=== PATIENT | male | born 1935 | race Caucasian/White ===

== ENCOUNTER 2017-01-18 17:40 | Emergency (ER) | payer OTHER ==
--- NOTE | ~2017-01-18 | EKG ---
[place], [place] ELECTROCARDIOGRAM REPORT [id number] UNIT #: [id number] ROOM: DOCTOR: DALIA WALTER MD,XIOMY BIRTHDATE: [birth year] DOS: 01/18/2017 ELECTROCARDIOGRAM TIME OF EK hours. The normal sinus rhythm was noted, heart rate of 77 beats per minute. Diffuse inversion of the T wave of this patient was noted in the anterolateral chest leads with mild ST segment depression. Inversion of the leads were also noted in I, aVL. A possibility of old inferior myocardial infarction would also be considered. EKG suggestive of either electrolyte imbalance or acute ischemia at this time. Further assessment for the patient for the acute myocardial ischemia was suggested with cardiac enzymes and followup electrocardiograms. XIOMY GÓMEZ MD CM:EKGRPT:ELECTROCARDIOGRAM REPORT [id number] XIOMY WALTER MD
[~2017-01-18 17:40] MED LIST: AMOXICILLIN500 MG PO; ASPIR LOW81 MG PO; CITALOPRAM20 MG PO; NEURONTIN300 MG PO; PRAVASTATIN SOD20 MG PO; PROPAFENONE HY225 MG PO; SYNTHROID,LEVO50 MCG PO; TRAMADOL HCL50 MG PO; VITAMIN B121000 MC2 PO; VITAMIN D5000 I2 PO
[2017-01-18 18:35] LABS: BASO % 0.2 % (0.0-1.0); EOS # 0.3 10*3/uL (0.0-0.4); EOS % 3.4 % (1.0-4.0); HEMATOCRIT 42.6 % (42.0-52.0); LYMPH % 10.4 % (27.0-41.0); MEAN CELL VOLUME 95.9 fl (80.0-94.0); MEAN CORPUSCULAR HGB 33.8 pg (27.0-31.0); MEAN CORPUSCULAR HGB CONC 35.2 g/dl (33.0-37.0); MEAN PLATELET VOLUME 11.4 fl (9.6-12.3); MONO # 0.7 10*3/uL (0.1-1.0); MONO % 7.9 % (3.0-9.0); NEUT # 7.3 10*3/uL (2.3-7.9); NEUT % 77.9 % (47.0-73.0); PLATELET COUNT AUTOMATED 130 10*3/uL (130-400); RED BLOOD COUNT 4.44 10*6/uL (4.50-5.90); RED CELL DISTRI WIDTH 13.1 % (0-14.5); WHITE BLOOD COUNT 9.3 10*3/uL (4.8-10.8)
[2017-01-18 18:52] LABS: ALBUMIN 3.7 gm/dl (3.1-4.5); CREATININE 1.57 mg/dL (0.70-1.30); POTASSIUM 3.5 mmol/L (3.5-5.1); TOTAL PROTEIN 7.8 gm/dL (6.4-8.2)
[2017-01-18 18:53] LABS: BILIRUBIN 1+ (NEGATIVE); BLOOD NEGATIVE (NEGATIVE); CLARITY SL CLOUDY (CLEAR); COLOR YELLOW (YELLOW); GLUCOSE NEGATIVE (NEGATIVE); KETONE TRACE (NEGATIVE); LEUKO ESTERASE NEGATIVE (NEGATIVE); NITRITE NEGATIVE (NEGATIVE); PH 5.5 (5.0-9.0); SPECIFIC GRAVITY >= 1.030 (1.005-1.030); UROBILINOGEN 0.2 E.U./dl (0.2-1.0)
[2017-01-18 19:08] LABS: MUCOUS 1+; RBC 0-2 rbc/hpf (0-2)
== END 2017-01-18 20:28 | disposition short-term general hospital (02) ==
LOC: ED 17:40
PROVIDERS: Nurse Practitioner Family
DX: I21.09 ST elevation (STEMI) myocardial infarction involving other coronary artery of anterior wall (principal); R09.81 Nasal congestion; H57.8 Other specified disorders of eye and adnexa; I10 Essential (primary) hypertension; E78.5 Hyperlipidemia, unspecified; Z79.82 Long term (current) use of aspirin; Z79.899 Other long term (current) drug therapy

== ENCOUNTER 2018-05-07 19:56 | Inpatient (IN) | payer OTHER ==
--- NOTE | ~2018-05-07 | EKG ---
[place], [place] ELECTROCARDIOGRAM REPORT NAME: FEDERICO TAYLOR UNIT #: [id number] ROOM: 405 DOCTOR: TEJA DRAFT REPORT BIRTHDATE: [birth year] [facility] Test Date: 2018-05-07 Test Time: 20:26:33 Pat Name: FEDERICO TAYLOR Department: Room: [facility] Gender: M Prepared Foods Supervisor: Kristy Pineda : 1935 Requested By: ANTONIO SALAS PA-C Order Number: [id number] Reading MD: Micky Nugent MD Measurements Intervals [place] Rate: 91 P: 51 IA: 137 QRS: 0 QRSD: 97 T: QT: 348 QTc: 429 Interpretive Statements Sinus rhythm Low voltage, extremity leads Abnormal R-wave progression, late transition Abnrm T, consider ischemia, anterolateral lds Electronically Signed On 05-15-2018 17:40:41 PST by Micky Nugent MD CM:EKGRPT:ELECTROCARDIOGRAM REPORT [id number] ANTONIO SALAS PA-C EPIPHANY DRAFT REPORT ANTONIO SALAS PA-C
--- NOTE | ~2018-05-07 | EKG ---
[place], [place] ELECTROCARDIOGRAM REPORT NAME: FEDERICO TAYLOR UNIT #: [id number] ROOM: 405 DOCTOR: TEJA DRAFT REPORT BIRTHDATE: [birth year] [facility] Test Date: 2018-05-08 Test Time: 01:45:41 Pat Name: FEDERICO TAYLOR Department: Room: 405 1 Gender: M Internet Marketing Coordinator: WANDY : 1935 Requested By: BOBBY VELASQUEZ Order Number: [id number] Reading MD: Micky Nugent MD Measurements Intervals [place] Rate: 148 P: [place]: QRS: 35 QRSD: 93 T: 223 QT: 279 QTc: 438 Interpretive Statements Atrial fibrillation with rapid V-rate Low voltage, extremity leads Repolarization abnormality, prob rate related Compared to 05/07/18 Atrial fibrillation has replaced normal sinus rhythm Lateral ST depression is more prominent Electronically Signed On 05-15-2018 17:42:56 PST by Micky Nugent MD CM:EKGRPT:ELECTROCARDIOGRAM REPORT [id number] BOBBY ORDOÑEZ DRAFT REPORT BOBBY VELASQUEZ DO
[2018-05-07 19:56] VITALS: BP 147/78
[~2018-05-07 19:56] MED LIST changes: -PROPAFENONE HY225 MG PO; +RYTHMOL SR225 MG PO; +VITAMIN D31000 UNI1 PO; -VITAMIN D5000 I2 PO
--- NOTE | 2018-05-07 20:17 | NUR ---
[facility] CALLED, PT SENT TO CT FOR SCAN
[2018-05-07 20:59] LABS: BASO % 0.1 % (0.0-1.0); EOS % 0.3 % (1.0-4.0); HEMATOCRIT 42.7 % (42.0-52.0); HEMOGLOBIN 14.8 g/dl (14.0-18.0); LYMPH # 0.5 10*3/uL (1.3-4.4); LYMPH % 7.4 % (27.0-41.0); MEAN CELL VOLUME 98.2 fl (80.0-94.0); MEAN CORPUSCULAR HGB CONC 34.7 g/dl (33.0-37.0); MEAN PLATELET VOLUME 11.5 fl (9.6-12.3); MONO # 0.4 10*3/uL (0.1-1.0); MONO % 5.6 % (3.0-9.0); NEUT # 5.9 10*3/uL (2.3-7.9); NEUT % 86.2 % (47.0-73.0); PLATELET COUNT AUTOMATED 94 10*3/uL (130-400); RED BLOOD COUNT 4.35 10*6/uL (4.50-5.90); RED CELL DISTRI WIDTH 13.1 % (0-14.5); WHITE BLOOD COUNT 6.8 10*3/uL (4.8-10.8)
[2018-05-07 21:06] VITALS: BP 156/87
[2018-05-07 21:09] LABS: INTERNATIONAL NORM RATIO 1.1 (2.0-3.5)
[2018-05-07 21:15] LABS: ALBUMIN 3.6 gm/dl (3.1-4.5); ALKALINE PHOSPHATASE 98 U/L (45-117); BUN 16 mg/dl (7-24); CHLORIDE 107 mmol/L (98-107); CREATININE 1.32 mg/dL (0.70-1.30); LIPASE 126 U/L (73-393); POTASSIUM 4.2 mmol/L (3.5-5.1); SGOT/AST 172 IU/L (3-35); SGPT/ALT 114 U/L (12-78); SODIUM 140 mmol/L (136-145); TOTAL PROTEIN 7.6 gm/dL (6.4-8.2)
[2018-05-07 21:27] LABS: TROPONIN I < 0.015 ng/ml (<0.045)
[2018-05-07 22:23] VITALS: BP 132/80
[2018-05-07] MEDS ORDERED: KENALOG 0.1%80 GM T (23:36)
--- NOTE | 2018-05-08 | NUR ---
SPOKE WITH DR SALES PER PT'S MED REC COMPLETE. ALSO NOTIFIED OF FAX FROM [facility] CONCERNING HEPARIN ORDER AND PT'S PLATELET COUNT. NEW ORDERS RECD.
[2018-05-08 00:58] LABS: BILIRUBIN NEGATIVE (NEGATIVE); BLOOD NEGATIVE (NEGATIVE); CLARITY CLEAR (CLEAR); COLOR YELLOW (YELLOW); GLUCOSE NEGATIVE (NEGATIVE); KETONE NEGATIVE (NEGATIVE); LEUKO ESTERASE NEGATIVE (NEGATIVE); NITRITE NEGATIVE (NEGATIVE); PH 5.5 (5.0-9.0); SPECIFIC GRAVITY >= 1.030 (1.005-1.030); UROBILINOGEN 0.2 E.U./dl (0.2-1.0)
--- NOTE | 2018-05-08 01:01 | NUR ---
Time: 2222 A 83 year old MALE admitted to under services of BOBBY GUTIERREZ DO. Pt. arrived via stretcher from ER. Chief complaint: NAUSEA VOMITING DIARRHEA HEADACHE CHEST PAIN. INITIAL ASSESSMENT COMPLETE, MONITOR APPLIED. PT ORIENTED TO FLOOR. ORDERS REC'D, MED REC COMPLETED. AKHIL HECK
--- NOTE | 2018-05-08 01:18 | NUR ---
CALL REC'D FROM VIDEO PHOTOGRAPHER PT'S HR 140'S
[2018-05-08 01:22] LABS: RBC 0-2 rbc/hpf (0-2); WBC 0-2 wbc/hpf (0-5)
[2018-05-08 01:35] VITALS: BP 134/90
--- NOTE | 2018-05-08 01:45 | NUR ---
HERE TO SEE PATIENT
--- NOTE | 2018-05-08 01:45 | NUR ---
NEW ORDER RECEIVED FROM FOR IV MORPHINE 2MG NOW AND Q6H PRN
--- NOTE | 2018-05-08 01:50 | NUR ---
5 MG IV LOPRESSOR GIVEN AT THIS TIME FOR HR >[address] SALES. IV MORPHINE 2 MG GIVEN AT 0152 FOR PT'S C/O HEADACHE WILL CONT TO MONITOR
--- NOTE | 2018-05-08 02:20 | NUR ---
DR SALES SPEAKING WITH [facility]
--- NOTE | 2018-05-08 02:58 | NUR ---
CARDIZEM DRIP STARTED 5MG/HR, X1 BOLUS OF 10MG, VERIFIED X2 RN'S. PT'S HR 120
[2018-05-08 03:09] LABS: BASO % 0.2 % (0.0-1.0); EOS % 0.6 % (1.0-4.0); HEMATOCRIT 41.3 % (42.0-52.0); HEMOGLOBIN 14.2 g/dl (14.0-18.0); LYMPH # 0.7 10*3/uL (1.3-4.4); LYMPH % 13.1 % (27.0-41.0); MEAN CELL VOLUME 98.3 fl (80.0-94.0); MEAN CORPUSCULAR HGB 33.8 pg (27.0-31.0); MEAN CORPUSCULAR HGB CONC 34.4 g/dl (33.0-37.0); MEAN PLATELET VOLUME 11.3 fl (9.6-12.3); MONO # 0.4 10*3/uL (0.1-1.0); MONO % 8.1 % (3.0-9.0); NEUT # 4.2 10*3/uL (2.3-7.9); NEUT % 77.6 % (47.0-73.0); PLATELET COUNT AUTOMATED 106 10*3/uL (130-400); RED CELL DISTRI WIDTH 13.2 % (0-14.5); WHITE BLOOD COUNT 5.4 10*3/uL (4.8-10.8)
[2018-05-08 03:25] LABS: ALBUMIN 3.4 gm/dl (3.1-4.5); ALKALINE PHOSPHATASE 93 U/L (45-117); BUN 14 mg/dl (7-24); CHLORIDE 110 mmol/L (98-107); CHOLESTEROL 113 mg/dL (<200); CREATININE 1.19 mg/dL (0.70-1.30); HDL CHOLESTEROL 32 mg/dl (40-60); LDL CHOLESTEROL 55 mg/dL (9-159); PHOSPHOROUS 2.7 mg/dL (2.5-4.9); SGOT/AST 135 IU/L (3-35); SGPT/ALT 99 U/L (12-78); SODIUM 143 mmol/L (136-145); TRIGLYCERIDES 130 mg/dl (<150); VLDL CHOLESTEROL 26 mg/dL (6-40)
[2018-05-08 03:27] LABS: FREE T4 1.07 ng/dl (0.76-1.46)
--- NOTE | 2018-05-08 04:30 | NUR ---
DRIP INCREASED TO 10MG/HR PER TITRATE ORDER FOR HR 100-TEENS TO 130'S. VERIFIED X2 RN'S
[2018-05-08 06:15] VITALS: BP 118/80
[2018-05-08 08:00] VITALS: BP 118/74
--- NOTE | 2018-05-08 08:30 | NUR ---
PT C/O SEVERE DIZZINESS. DR ENG NOTIFIED. ORDER RECEIVED FOR ANTIVERT.
--- NOTE | 2018-05-08 08:50 | NUR ---
CLARIFIED IT WAS OK TO GIVE PT HIS RYTHMOL WITH CARDIZEM GTT WITH DOCTOR. DOCTOR STATED IT WOULD BE OK. PT STILL C/O DIZZINESS BUT IS GETTING BETTER.
--- NOTE | 2018-05-08 09:00 | NUR ---
Insurance Biller in to talk to patient. Patient states lives at home with . There are few steps in the home. Physician: pau cruz [facility] [place] [facility] none Patient's level of ADLs: INDEPENDENT Patient has working utilities: all working DME: none Follow-up physician's appointment after d/c: will be made by hospitalist nurse director upon discharge Does patient want to access PORTAL?: no Discharge plan discussed with patient, patient lives at home with , states he is independent in adls and ambulation, patient states he will be going back home when able and denies any home needs. SHADI COBB
--- NOTE | 2018-05-08 09:05 | NUR ---
NOTIFIED BY [facility] [employer] THAT PT IS NSR IN THE 60'S. IV CARDIZEM GTT STOPPED. WILL UPDATE DR. NAIK.
[2018-05-08 09:10] LABS: VITAMIN D, 25-HYDROXY 24.6 ng/mL (30-100)
--- NOTE | 2018-05-08 09:22 | NUR ---
DR NAIK UPDATED ON PT'S CONDITION AND CONVERSION TO NSR IN THE HIGH 50'S TO 60'S. ALSO NOTIFIED HIM OF PT GETTING HIS RYTHMOL.
[2018-05-08 12:00] VITALS: BP 129/65
--- NOTE | 2018-05-08 12:51 | NUR ---
PT VISITNG WITH HIS . PT WAS ABLE TO EAT 2 BOWLS OF CHICKEN BROTH WITHOUT VOMITING. PT DENIES DIZZINESS AT THIS TIME. MONITOR REMAINS NSR I THE 60'S.
[2018-05-08 16:00] VITALS: BP 136/76
--- NOTE | 2018-05-08 18:01 | NUR ---
DR NAIK HERE NOTIFIED THAT FAMILY IS REFUSING XARELTO AT THIS TIME.
[2018-05-08 20:00] VITALS: BP 118/56
[2018-05-09] VITALS: BP 122/59
--- NOTE | 2018-05-09 00:15 | NUR ---
INTO SEE PT. PT HAS NO COMPLAINTS
--- NOTE | 2018-05-09 00:55 | NUR ---
INTO SEE PT TO GIVE SOFRAN. PT HAS NO COMPLAINTS.
[2018-05-09 07:01] LABS: BASO % 0.5 % (0.0-1.0); EOS # 0.1 10*3/uL (0.0-0.4); EOS % 2.3 % (1.0-4.0); HEMATOCRIT 36.7 % (42.0-52.0); HEMOGLOBIN 12.5 g/dl (14.0-18.0); LYMPH # 1.3 10*3/uL (1.3-4.4); LYMPH % 33.3 % (27.0-41.0); MEAN CELL VOLUME 100.8 fl (80.0-94.0); MEAN CORPUSCULAR HGB 34.3 pg (27.0-31.0); MEAN CORPUSCULAR HGB CONC 34.1 g/dl (33.0-37.0); MEAN PLATELET VOLUME 11.8 fl (9.6-12.3); MONO # 0.6 10*3/uL (0.1-1.0); MONO % 14.3 % (3.0-9.0); NEUT % 49.3 % (47.0-73.0); PLATELET COUNT AUTOMATED 91 10*3/uL (130-400); RED BLOOD COUNT 3.64 10*6/uL (4.50-5.90); RED CELL DISTRI WIDTH 13.7 % (0-14.5)
[2018-05-09 07:20] LABS: ALBUMIN 2.9 gm/dl (3.1-4.5); BUN 15 mg/dl (7-24); CHLORIDE 108 mmol/L (98-107); POTASSIUM 3.9 mmol/L (3.5-5.1); SGOT/AST 78 IU/L (3-35); SODIUM 142 mmol/L (136-145)
[2018-05-09 07:32] LABS: ALKALINE PHOSPHATASE 76 U/L (45-117); CREATININE 1.23 mg/dL (0.70-1.30); SGPT/ALT 72 U/L (12-78); TOTAL PROTEIN 6.2 gm/dL (6.4-8.2)
--- NOTE | 2018-05-09 08:00 | NUR ---
PT SITTING UP IN BED. RESP-EASY AND REGULAR. IVF INFUSING WITH NO PROBLEM. NO C/O AT THIS TIME. CALL LIGHT IN REACH. SEE SHIFT ASSESSMENT.
[2018-05-09 08:07] LABS: HEPATITIS B SURFACE AG Negative (Negative); HEPATITIS C VIRUS ANTIBODY <0.1 s/co (0.0-0.9)
--- NOTE | 2018-05-09 09:00 | NUR ---
case management visits with patient, patient states he will be going home today. discussed with him [facility] and he declines any services at this time
--- NOTE | 2018-05-09 10:00 | NUR ---
PT SITTING IN BED WITH VISITORS AT HIS SIDE. RESP-EASY AND REGULAR. CALL LIGHT IN REACH.
[2018-05-09] MEDS ORDERED: MECLIZINE HCL25 M2 PO (10:16)
[2018-05-09] MEDS ORDERED: XARE20MG PO (10:16)
--- NOTE | 2018-05-09 12:00 | NUR ---
WAITING ON FOR DISCHARGE.
--- NOTE | 2018-05-09 13:38 | NUR ---
Discharge instructions reviewed with patient/family. Patient receptive and verbalizes understanding. Follow-up care arranged. Written instructions given to patient/family. HEPLOCKS REMOVED 2X2 APPLIED. MONITOR REMOVED. PT ESCORTED VIA WHEELCHAIR FOR DISCHARGE. THEY ARE STOPPING AT PHARMACY FOR RX'S. RAZA SEQUEIRA
[2018-07-23] MEDS ORDERED: PROTONIX40 MG PO (16:31)
[2018-07-23] MEDS ORDERED: Carafate1 GM PO (16:31)
== END 2018-05-09 13:38 | disposition home or self-care (01) | DRG 391 ==
LOC: ED 19:56 → 4E 21:48 → EDHOLD 21:48 → 4E 22:15
PROVIDERS: Family Medicine; Internal Medicine; Physician Assistant; ADMIT Internal Medicine
DX: K52.9 Noninfective gastroenteritis and colitis, unspecified (principal); N17.0 Acute kidney failure with tubular necrosis; J90 Pleural effusion, not elsewhere classified; E86.0 Dehydration; I48.0 Paroxysmal atrial fibrillation; D69.6 Thrombocytopenia, unspecified; N18.3 Chronic kidney disease, stage 3 (moderate); E78.5 Hyperlipidemia, unspecified; E03.9 Hypothyroidism, unspecified; F41.9 Anxiety disorder, unspecified; F32.9 Major depressive disorder, single episode, unspecified; G62.9 Polyneuropathy, unspecified; M19.90 Unspecified osteoarthritis, unspecified site; L40.9 Psoriasis, unspecified; R74.0 Nonspecific elevation of levels of transaminase and lactic acid dehydrogenase [LDH]; R73.9 Hyperglycemia, unspecified; E55.9 Vitamin D deficiency, unspecified; E66.9 Obesity, unspecified; I25.2 Old myocardial infarction; Z79.899 Other long term (current) drug therapy; Z79.82 Long term (current) use of aspirin; Z82.49 Family history of ischemic heart disease and other diseases of the circulatory system; Z82.3 Family history of stroke; Z68.35 Body mass index [BMI] 35.0-35.9, adult

== ENCOUNTER → 2018-05-28 | Outpatient (CLI) | payer OTHER ==
[~2018-05-28] MED LIST changes: +Carafate1 GM PO; +KENALOG 0.1%80 GM T; +MECLIZINE HCL25 M2 PO; +PROTONIX40 MG PO; +XARE20MG PO
== END | disposition home or self-care (01) ==
LOC: RESCLI 01:32
DX: E03.9 Hypothyroidism, unspecified (principal); I48.91 Unspecified atrial fibrillation; E78.5 Hyperlipidemia, unspecified; G62.9 Polyneuropathy, unspecified; E55.9 Vitamin D deficiency, unspecified; L40.9 Psoriasis, unspecified; Z79.82 Long term (current) use of aspirin; Z79.899 Other long term (current) drug therapy; Z88.8 Allergy status to other drugs, medicaments and biological substances

== ENCOUNTER → 2018-09-04 | Outpatient (CLI) | payer OTHER | END | disposition home or self-care (01) | LOC: RESCLI 01:14 | DX: E03.9 Hypothyroidism, unspecified (principal); I48.91 Unspecified atrial fibrillation; E78.5 Hyperlipidemia, unspecified; G62.9 Polyneuropathy, unspecified; E55.9 Vitamin D deficiency, unspecified; L40.9 Psoriasis, unspecified; Z79.82 Long term (current) use of aspirin; Z79.899 Other long term (current) drug therapy ==

== ENCOUNTER → 2018-12-06 | Outpatient (CLI) | payer OTHER | END | disposition home or self-care (01) | LOC: RESCLI 00:11 | DX: E03.9 Hypothyroidism, unspecified (principal); I48.91 Unspecified atrial fibrillation; E78.5 Hyperlipidemia, unspecified; G62.9 Polyneuropathy, unspecified; E55.9 Vitamin D deficiency, unspecified; L40.9 Psoriasis, unspecified; N17.0 Acute kidney failure with tubular necrosis; Z79.899 Other long term (current) drug therapy; Z88.8 Allergy status to other drugs, medicaments and biological substances ==

== ENCOUNTER → 2019-03-19 | Outpatient (CLI) | payer OTHER | END | disposition home or self-care (01) | LOC: RESCLI 00:20 | DX: E03.9 Hypothyroidism, unspecified (principal); I48.91 Unspecified atrial fibrillation; E78.5 Hyperlipidemia, unspecified; G62.9 Polyneuropathy, unspecified; E55.9 Vitamin D deficiency, unspecified; L40.9 Psoriasis, unspecified; Z79.899 Other long term (current) drug therapy ==

== ENCOUNTER → 2019-05-21 | Outpatient (CLI) | payer OTHER | END | disposition home or self-care (01) | LOC: RESCLI 00:36 | DX: I48.91 Unspecified atrial fibrillation (principal); E03.9 Hypothyroidism, unspecified; G62.9 Polyneuropathy, unspecified; E55.9 Vitamin D deficiency, unspecified; L40.9 Psoriasis, unspecified; Z79.899 Other long term (current) drug therapy ==

== ENCOUNTER → 2019-05-27 | Outpatient (CLI) | payer OTHER | END | disposition home or self-care (01) | LOC: US 08:57 | DX: K80.20 Calculus of gallbladder without cholecystitis without obstruction (principal); K74.60 Unspecified cirrhosis of liver; K83.8 Other specified diseases of biliary tract ==

== ENCOUNTER → 2019-11-28 | Outpatient (CLI) | payer OTHER | END | disposition home or self-care (01) | LOC: RESCLI 13:23 | DX: Z51.81 Encounter for therapeutic drug level monitoring (principal); I48.91 Unspecified atrial fibrillation; G62.9 Polyneuropathy, unspecified; E55.9 Vitamin D deficiency, unspecified; E03.9 Hypothyroidism, unspecified; M19.90 Unspecified osteoarthritis, unspecified site; L40.9 Psoriasis, unspecified; Z79.899 Other long term (current) drug therapy ==

== ENCOUNTER → 2020-02-06 | Outpatient (CLI) | payer OTHER | END | disposition home or self-care (01) | LOC: RESCLI 02:45 | PROVIDERS: ATTEND Internal Medicine | DX: G62.9 Polyneuropathy, unspecified (principal); E55.9 Vitamin D deficiency, unspecified; I48.91 Unspecified atrial fibrillation; E03.9 Hypothyroidism, unspecified; M19.90 Unspecified osteoarthritis, unspecified site; L40.9 Psoriasis, unspecified; Z79.899 Other long term (current) drug therapy; Z98.890 Other specified postprocedural states ==

== ENCOUNTER → 2020-07-28 | Outpatient (CLI) | payer OTHER | END | disposition home or self-care (01) | LOC: RESCLI 01:57 | PROVIDERS: ATTEND Internal Medicine Nephrology | DX: I48.91 Unspecified atrial fibrillation (principal); E03.9 Hypothyroidism, unspecified; E55.9 Vitamin D deficiency, unspecified; M19.90 Unspecified osteoarthritis, unspecified site; J31.0 Chronic rhinitis; G62.9 Polyneuropathy, unspecified; L40.9 Psoriasis, unspecified; Z79.82 Long term (current) use of aspirin; Z79.899 Other long term (current) drug therapy ==

== ENCOUNTER → 2020-08-23 | Outpatient (CLI) | payer OTHER | END | disposition home or self-care (01) | LOC: COVID19 09:51 | PROVIDERS: ATTEND Internal Medicine | DX: Z20.822 Contact with and (suspected) exposure to COVID-19 (principal) ==

== ENCOUNTER → 2020-10-08 | Outpatient (CLI) | payer OTHER | END | disposition home or self-care (01) | LOC: RESCLI 01:40 | PROVIDERS: ATTEND Internal Medicine | DX: I48.91 Unspecified atrial fibrillation (principal); J31.0 Chronic rhinitis; G62.9 Polyneuropathy, unspecified; E03.9 Hypothyroidism, unspecified; Z79.82 Long term (current) use of aspirin; Z79.899 Other long term (current) drug therapy; E55.9 Vitamin D deficiency, unspecified; C61 Malignant neoplasm of prostate; L40.9 Psoriasis, unspecified; Z98.890 Other specified postprocedural states ==

== ENCOUNTER 2020-11-04 21:50 | Emergency (ER) | payer OTHER ==
[~2020-11-04] VITALS: Ht 180.3 cm; Wt 81.4 kg
[2020-11-04 22:21] LABS: BASO % 0.2 % (0.0-1.0); EOS % 0.2 % (1.0-4.0); HEMATOCRIT 42.7 % (42.0-52.0); LYMPH # 0.6 10*3/uL (1.3-4.4); LYMPH % 4.8 % (27.0-41.0); MEAN CELL VOLUME 102.6 fl (80.0-94.0); MEAN CORPUSCULAR HGB 33.9 pg (27.0-31.0); MEAN PLATELET VOLUME 11.4 fl (9.6-12.3); MONO # 0.7 10*3/uL (0.1-1.0); MONO % 5.2 % (3.0-9.0); NEUT # 11.3 10*3/uL (2.3-7.9); NEUT % 89.2 % (47.0-73.0); PLATELET COUNT AUTOMATED 90 10*3/uL (130-400); RED BLOOD COUNT 4.16 10*6/uL (4.50-5.90); RED CELL DISTRI WIDTH 13.8 % (0-14.5); WHITE BLOOD COUNT 12.7 10*3/uL (4.8-10.8)
[2020-11-04 22:38] LABS: ALBUMIN 3.3 gm/dl (3.1-4.5); CREATININE 1.42 mg/dL (0.70-1.30); POTASSIUM 4.1 mmol/L (3.5-5.1); TOTAL PROTEIN 6.9 gm/dL (6.4-8.2)
[2020-11-04 23:45] LABS: BILIRUBIN Negative (Negative); BLOOD Negative (Negative); CLARITY Clear (Clear); COLOR Yellow (Yellow); GLUCOSE 3+ (Negative); KETONE Negative (Negative); LEUKO ESTERASE Negative (Negative); NITRITE Negative (Negative); SPECIFIC GRAVITY 1.025 (1.001-1.030)
[2020-11-04 23:57] LABS: RBC 0-2 rbc/hpf (0-2); WBC 0-2 wbc/hpf (0-5)
[2020-11-05] MEDS ORDERED: GLUCOPHAGE500 M1 PO (01:01)
== END 2020-11-05 01:34 | disposition home or self-care (01) ==
LOC: ED 21:50
PROVIDERS: Internal Medicine
DX: R73.9 Hyperglycemia, unspecified (principal); N18.31 Chronic kidney disease, stage 3a; D72.829 Elevated white blood cell count, unspecified; D75.89 Other specified diseases of blood and blood-forming organs; Z79.899 Other long term (current) drug therapy; Z79.82 Long term (current) use of aspirin; Z98.890 Other specified postprocedural states

== ENCOUNTER → 2021-03-09 | Outpatient (CLI) | payer OTHER ==
[~2021-03-09] MED LIST changes: +GLUCOPHAGE500 M1 PO
== END | disposition home or self-care (01) ==
LOC: RESCLI 01:41
PROVIDERS: ATTEND Internal Medicine Nephrology
DX: I48.91 Unspecified atrial fibrillation (principal); G62.9 Polyneuropathy, unspecified; I40.9 Acute myocarditis, unspecified; J30.2 Other seasonal allergic rhinitis; E78.5 Hyperlipidemia, unspecified; E53.8 Deficiency of other specified B group vitamins; E03.9 Hypothyroidism, unspecified; Z85.46 Personal history of malignant neoplasm of prostate; Z72.0 Tobacco use; Z79.899 Other long term (current) drug therapy; Z98.890 Other specified postprocedural states

== ENCOUNTER → 2022-05-30 | Outpatient (CLI) | payer OTHER ==
[~2022-05-30] MED LIST changes: +ATORVASTATIN CA40 M1 PO; +CIPROFLOXACIN250 MG PO; +LOPRESSOR25 MG PO
== END | disposition home or self-care (01) ==
LOC: RESCLI 13:30
PROVIDERS: ATTEND Emergency Medicine
DX: E03.9 Hypothyroidism, unspecified (principal); I48.91 Unspecified atrial fibrillation; E78.5 Hyperlipidemia, unspecified; E55.9 Vitamin D deficiency, unspecified; L40.9 Psoriasis, unspecified; J30.2 Other seasonal allergic rhinitis; I25.10 Atherosclerotic heart disease of native coronary artery without angina pectoris; E53.8 Deficiency of other specified B group vitamins; C61 Malignant neoplasm of prostate; Z79.899 Other long term (current) drug therapy; Z98.890 Other specified postprocedural states; Z85.46 Personal history of malignant neoplasm of prostate; Z79.82 Long term (current) use of aspirin

== ENCOUNTER → 2022-06-19 | Outpatient (CLI) | payer OTHER ==
[~2022-06-19] MED LIST changes: +METRONIDAZOLE500 M1 PO; +OMNICEF300 MG PO
== END ==
LOC: WOUNDCARE 04:30
PROVIDERS: ATTEND Nurse Practitioner Family
DX: Z53.21 Procedure and treatment not carried out due to patient leaving prior to being seen by health care provider (principal)

== ENCOUNTER → 2022-06-27 | Outpatient (CLI) | payer OTHER | END | disposition home or self-care (01) | LOC: RESCLI 02:51 | PROVIDERS: ATTEND Internal Medicine | DX: E03.9 Hypothyroidism, unspecified (principal); E78.5 Hyperlipidemia, unspecified; I48.91 Unspecified atrial fibrillation; E55.9 Vitamin D deficiency, unspecified; L40.9 Psoriasis, unspecified; J30.2 Other seasonal allergic rhinitis; F33.9 Major depressive disorder, recurrent, unspecified; I25.10 Atherosclerotic heart disease of native coronary artery without angina pectoris; R26.2 Difficulty in walking, not elsewhere classified; E53.8 Deficiency of other specified B group vitamins; Z85.46 Personal history of malignant neoplasm of prostate; Z98.890 Other specified postprocedural states; Z79.82 Long term (current) use of aspirin; Z79.899 Other long term (current) drug therapy ==

== ENCOUNTER 2022-08-11 00:05 | Inpatient (IN) | payer OTHER ==
[2022-08-11] VITALS (9 sets, daily range): BP systolic 116–158; BP diastolic 60–87
[~2022-08-11] VITALS: Ht 170.1 cm; Wt 68.2 kg
[2022-08-11 00:46] LABS: BASO % 0.2 % (0.0-1.0); EOS # 0.1 10*3/uL (0.0-0.4); EOS % 0.9 % (1.0-4.0); HEMATOCRIT 42.3 % (42.0-52.0); LYMPH # 1.1 10*3/uL (1.3-4.4); LYMPH % 7.4 % (27.0-41.0); MEAN CELL VOLUME 99.5 fl (80.0-94.0); MEAN CORPUSCULAR HGB 32.9 pg (27.0-31.0); MEAN CORPUSCULAR HGB CONC 33.1 g/dl (33.0-37.0); MEAN PLATELET VOLUME 11.7 fl (9.6-12.3); MONO # 0.9 10*3/uL (0.1-1.0); MONO % 6.3 % (3.0-9.0); NEUT # 12.2 10*3/uL (2.3-7.9); NEUT % 84.7 % (47.0-73.0); PLATELET COUNT AUTOMATED 149 10*3/uL (130-400); RED BLOOD COUNT 4.25 10*6/uL (4.50-5.90); RED CELL DISTRI WIDTH 14.7 % (0-14.5); WHITE BLOOD COUNT 14.4 10*3/uL (4.8-10.8)
[2022-08-11 00:48] LABS: ALKALINE PHOSPHATASE 112 U/L (46-116); BUN 18 mg/dl (9-23); CHLORIDE 105 mmol/L (98-107); POTASSIUM 4.3 mmol/L (3.4-5.1); SGPT/ALT 33 U/L (10-49); TOTAL PROTEIN 6.4 gm/dL (6.0-8.0)
[2022-08-11 00:50] LABS: ACT PARTIAL THROMBO TIME 26.7 SECONDS (20.0-32.1); INTERNATIONAL NORM RATIO 1.1 (2.0-3.5)
[2022-08-11] MEDS ORDERED: BICALUTAMIDE50 MG PO (00:56)
[2022-08-11] MEDS ORDERED: MULTIPLE VITAM1 EAC1 PO (01:00)
[2022-08-11 03:48] LABS: BILIRUBIN Negative (Negative); BLOOD Negative (Negative); CLARITY Clear (Clear); COLOR Yellow (Yellow); GLUCOSE Negative (Negative); KETONE Negative (Negative); LEUKO ESTERASE Negative (Negative); NITRITE Negative (Negative)
[2022-08-11 04:25] LABS: BASO % 0.3 % (0.0-1.0); EOS # 0.1 10*3/uL (0.0-0.4); EOS % 0.9 % (1.0-4.0); HEMATOCRIT 40.4 % (42.0-52.0); LYMPH # 1.1 10*3/uL (1.3-4.4); LYMPH % 10.1 % (27.0-41.0); MEAN CORPUSCULAR HGB 33.3 pg (27.0-31.0); MEAN CORPUSCULAR HGB CONC 33.7 g/dl (33.0-37.0); MONO # 0.6 10*3/uL (0.1-1.0); MONO % 5.6 % (3.0-9.0); NEUT # 8.6 10*3/uL (2.3-7.9); NEUT % 82.6 % (47.0-73.0); RED BLOOD COUNT 4.08 10*6/uL (4.50-5.90); RED CELL DISTRI WIDTH 14.6 % (0-14.5); WHITE BLOOD COUNT 10.4 10*3/uL (4.8-10.8)
[2022-08-11 04:26] LABS: PLATELET COUNT AUTOMATED 88 10*3/uL (130-400)
[2022-08-11 04:45] LABS: ALKALINE PHOSPHATASE 99 U/L (46-116); BUN 20 mg/dl (9-23); CHLORIDE 106 mmol/L (98-107); FREE T4 1.14 ng/dl (0.89-1.76); POTASSIUM 5.2 mmol/L (3.4-5.1); SGPT/ALT 41 U/L (10-49); THYROID STIM HORMONE (HS) 1.119 uIU/ml (0.550-4.780); TOTAL PROTEIN 6.1 gm/dL (6.0-8.0)
[2022-08-11] MEDS ORDERED: UNITHROID50 MCG PO (11:30)
[2022-08-11] MEDS ORDERED: METOPROLOL25 MG PO (11:31)
[2022-08-11] MEDS ORDERED: LIPITOR40 MG PO (11:32)
[2022-08-11] MEDS ORDERED: ZINC50 M4 PO (14:57)
[2022-08-11] MEDS ORDERED: VITAMIN C1000 M5 PO (14:58)
[2022-08-11] MEDS ORDERED: VITAMIN B122500 MC1 PO (14:59)
[2022-08-11 17:03] LABS: BUN 11 mg/dl (9-23); CHLORIDE 108 mmol/L (98-107)
[2022-08-12] VITALS: BP 109/50; BP 132/80
[2022-08-12 06:11] LABS: BASO % 0.3 % (0.0-1.0); EOS # 0.3 10*3/uL (0.0-0.4); EOS % 3.7 % (1.0-4.0); HEMATOCRIT 41.9 % (42.0-52.0); LYMPH # 0.9 10*3/uL (1.3-4.4); LYMPH % 12.5 % (27.0-41.0); MEAN CELL VOLUME 99.3 fl (80.0-94.0); MEAN CORPUSCULAR HGB 32.5 pg (27.0-31.0); MEAN CORPUSCULAR HGB CONC 32.7 g/dl (33.0-37.0); MEAN PLATELET VOLUME 11.8 fl (9.6-12.3); MONO # 0.5 10*3/uL (0.1-1.0); MONO % 7.5 % (3.0-9.0); NEUT # 5.1 10*3/uL (2.3-7.9); NEUT % 75.6 % (47.0-73.0); PLATELET COUNT AUTOMATED 93 10*3/uL (130-400); RED BLOOD COUNT 4.22 10*6/uL (4.50-5.90); RED CELL DISTRI WIDTH 14.5 % (0-14.5); WHITE BLOOD COUNT 6.8 10*3/uL (4.8-10.8)
[2022-08-12 06:28] LABS: BUN 10 mg/dl (9-23); CHLORIDE 108 mmol/L (98-107); POTASSIUM 3.4 mmol/L (3.4-5.1)
[2022-08-12 08:00] VITALS: BP 117/86
[2022-08-12 12:00] VITALS: BP 109/76
[2022-08-12 16:00] VITALS: BP 133/64
[2022-08-12 20:00] VITALS: BP 135/83
[2022-08-13] VITALS: BP 121/73
[2022-08-13 06:43] LABS: BASO % 0.3 % (0.0-1.0); EOS # 0.2 10*3/uL (0.0-0.4); EOS % 2.8 % (1.0-4.0); HEMATOCRIT 39.5 % (42.0-52.0); LYMPH # 1.2 10*3/uL (1.3-4.4); LYMPH % 17.3 % (27.0-41.0); MEAN CELL VOLUME 98.8 fl (80.0-94.0); MEAN CORPUSCULAR HGB 32.5 pg (27.0-31.0); MEAN CORPUSCULAR HGB CONC 32.9 g/dl (33.0-37.0); MEAN PLATELET VOLUME 11.9 fl (9.6-12.3); MONO # 0.8 10*3/uL (0.1-1.0); MONO % 11.6 % (3.0-9.0); NEUT # 4.9 10*3/uL (2.3-7.9); NEUT % 67.7 % (47.0-73.0); PLATELET COUNT AUTOMATED 100 10*3/uL (130-400); RED CELL DISTRI WIDTH 14.6 % (0-14.5); WHITE BLOOD COUNT 7.2 10*3/uL (4.8-10.8)
[2022-08-13 07:24] LABS: BUN 13 mg/dl (9-23); CHLORIDE 108 mmol/L (98-107)
[2022-08-13 08:00] VITALS: BP 136/98
[2022-08-13 12:00] VITALS: BP 127/98
[2022-08-13 16:00] VITALS: BP 119/71
[2022-08-13 20:00] VITALS: BP 129/77
[2022-08-13 21:37] LABS: ABG BASE EXCESS 0.5 mmol/L (-2.0-2.0); ARTERIAL BLOOD GAS PH 7.43 (7.35-7.45); ARTERIAL BLOOD GAS PO2 70.6 (80-90)
[2022-08-14] VITALS: BP 144/103
[2022-08-14 05:23] LABS: BUN 11 mg/dl (9-23); CHLORIDE 106 mmol/L (98-107); POTASSIUM 3.4 mmol/L (3.4-5.1)
[2022-08-14 06:28] LABS: BASO % 0.5 % (0.0-1.0); EOS # 0.2 10*3/uL (0.0-0.4); EOS % 2.5 % (1.0-4.0); HEMATOCRIT 42.2 % (42.0-52.0); LYMPH # 2.2 10*3/uL (1.3-4.4); LYMPH % 25.7 % (27.0-41.0); MEAN CELL VOLUME 98.6 fl (80.0-94.0); MEAN CORPUSCULAR HGB 32.9 pg (27.0-31.0); MEAN CORPUSCULAR HGB CONC 33.4 g/dl (33.0-37.0); MEAN PLATELET VOLUME 11.9 fl (9.6-12.3); MONO # 0.8 10*3/uL (0.1-1.0); MONO % 9.9 % (3.0-9.0); NEUT # 5.2 10*3/uL (2.3-7.9); NEUT % 60.9 % (47.0-73.0); RED BLOOD COUNT 4.28 10*6/uL (4.50-5.90); RED CELL DISTRI WIDTH 14.6 % (0-14.5); WHITE BLOOD COUNT 8.5 10*3/uL (4.8-10.8)
[2022-08-14 06:37] LABS: PLATELET COUNT AUTOMATED 140 10*3/uL (130-400)
[2022-08-14 08:00] VITALS: BP 112/89
[2022-08-14 12:00] VITALS: BP 122/75
[2022-08-14 16:00] VITALS: BP 118/76
[2022-08-14 20:00] VITALS: BP 111/74
[2022-08-15] VITALS: BP 133/85
[2022-08-15 06:28] LABS: BASO % 0.5 % (0.0-1.0); EOS # 0.2 10*3/uL (0.0-0.4); EOS % 2.4 % (1.0-4.0); HEMATOCRIT 37.3 % (42.0-52.0); LYMPH # 1.7 10*3/uL (1.3-4.4); LYMPH % 26.3 % (27.0-41.0); MEAN CORPUSCULAR HGB 33.5 pg (27.0-31.0); MEAN CORPUSCULAR HGB CONC 33.5 g/dl (33.0-37.0); MEAN PLATELET VOLUME 11.7 fl (9.6-12.3); MONO # 0.7 10*3/uL (0.1-1.0); MONO % 10.4 % (3.0-9.0); NEUT # 3.8 10*3/uL (2.3-7.9); NEUT % 60.1 % (47.0-73.0); PLATELET COUNT AUTOMATED 109 10*3/uL (130-400); RED BLOOD COUNT 3.73 10*6/uL (4.50-5.90); RED CELL DISTRI WIDTH 14.7 % (0-14.5); WHITE BLOOD COUNT 6.3 10*3/uL (4.8-10.8)
[2022-08-15 07:25] LABS: ALKALINE PHOSPHATASE 94 U/L (46-116); BUN 15 mg/dl (9-23); CHLORIDE 110 mmol/L (98-107); POTASSIUM 3.7 mmol/L (3.4-5.1); SGPT/ALT 23 U/L (10-49); TOTAL PROTEIN 5.7 gm/dL (6.0-8.0)
[2022-08-15 08:00] VITALS: BP 114/88
[2022-08-15 12:00] VITALS: BP 113/67
[2022-08-15 16:00] VITALS: BP 99/62
[2022-08-15 20:00] VITALS: BP 115/85
[2022-08-16] VITALS: BP 119/71
[2022-08-16 08:00] VITALS: BP 120/84
[2022-08-16 12:00] VITALS: BP 121/84
[2022-08-16 16:00] VITALS: BP 105/68
[2022-08-16 20:00] VITALS: BP 105/64
[2022-08-17] VITALS: BP 132/74
[2022-08-17 08:00] VITALS: BP 105/68
[2022-08-17] MEDS ORDERED: METOPROLOL SUCC25 M2 PO (11:10)
[2022-08-17] MEDS ORDERED: DOXYCYCLINE HY100 M3 PO (11:11)
[2022-08-17 12:00] VITALS: BP 112/78
== END 2022-08-17 14:15 | DRG 871 ==
LOC: ED 00:05 → EDHOLD 01:53 → 5E 01:53
PROVIDERS: Emergency Medicine; Internal Medicine; Student in an Organized Health Care Education/Training Program; ADMIT Internal Medicine; ATTEND Internal Medicine
DX: A41.9 Sepsis, unspecified organism (principal); J69.0 Pneumonitis due to inhalation of food and vomit; N17.0 Acute kidney failure with tubular necrosis; I47.1 Supraventricular tachycardia; Z66 Do not resuscitate; R65.20 Severe sepsis without septic shock; R73.9 Hyperglycemia, unspecified; E78.5 Hyperlipidemia, unspecified; E03.9 Hypothyroidism, unspecified; D69.6 Thrombocytopenia, unspecified; N18.31 Chronic kidney disease, stage 3a; E55.9 Vitamin D deficiency, unspecified; I48.0 Paroxysmal atrial fibrillation; I12.9 Hypertensive chronic kidney disease with stage 1 through stage 4 chronic kidney disease, or unspecified chronic kidney disease; K21.9 Gastro-esophageal reflux disease without esophagitis; R29.6 Repeated falls; C61 Malignant neoplasm of prostate; L89.321 Pressure ulcer of left buttock, stage 1; Z51.5 Encounter for palliative care; Z90.49 Acquired absence of other specified parts of digestive tract; I25.2 Old myocardial infarction; Z88.0 Allergy status to penicillin; Z82.3 Family history of stroke; Z82.49 Family history of ischemic heart disease and other diseases of the circulatory system; Z79.82 Long term (current) use of aspirin; Z79.899 Other long term (current) drug therapy

== ENCOUNTER 2023-04-14 10:37 | Emergency (ER) | payer OTHER ==
[~2023-04-14] VITALS: Ht 170.1 cm; Wt 74.4 kg
[~2023-04-14 10:37] MED LIST changes: +BICALUTAMIDE50 MG PO; +DOXYCYCLINE HY100 M3 PO; +LIPITOR40 MG PO; +METOPROLOL SUCC25 M2 PO; +METOPROLOL25 MG PO; +MULTIPLE VITAM1 EAC1 PO; +UNITHROID50 MCG PO; +VITAMIN B122500 MC1 PO; +VITAMIN C1000 M5 PO; +ZINC50 M4 PO
[2023-04-14 11:19] LABS: BASO % 0.1 % (0.0-1.0); EOS % 0.1 % (1.0-4.0); HEMATOCRIT 39.1 % (42.0-52.0); LYMPH # 0.9 10*3/uL (1.3-4.4); LYMPH % 11.5 % (27.0-41.0); MEAN CELL VOLUME 95.6 fl (80.0-94.0); MEAN CORPUSCULAR HGB CONC 35.5 g/dl (33.0-37.0); MEAN PLATELET VOLUME 11.1 fl (9.6-12.3); MONO # 0.6 10*3/uL (0.1-1.0); MONO % 7.4 % (3.0-9.0); NEUT # 6.1 10*3/uL (2.3-7.9); NEUT % 80.5 % (47.0-73.0); PLATELET COUNT AUTOMATED 128 10*3/uL (130-400); RED BLOOD COUNT 4.09 10*6/uL (4.50-5.90); RED CELL DISTRI WIDTH 13.1 % (0-14.5); WHITE BLOOD COUNT 7.6 10*3/uL (4.8-10.8)
[2023-04-14 11:42] LABS: ALKALINE PHOSPHATASE 120 U/L (46-116); BUN 15 mg/dl (9-23); CHLORIDE 104 mmol/L (98-107); POTASSIUM 3.4 mmol/L (3.4-5.1); SGPT/ALT 19 U/L (5-49); TOTAL PROTEIN 7.1 gm/dL (6.0-8.0)
[2023-04-14 12:02] LABS: ETHYL ALCOHOL < 3.0 mg/dl (<3)
[2023-04-14 12:12] LABS: BILIRUBIN Negative (Negative); BLOOD Negative (Negative); CLARITY Clear (Clear); COLOR Yellow (Yellow); GLUCOSE Negative (Negative); KETONE Trace (Negative); LEUKO ESTERASE Negative (Negative); NITRITE Negative (Negative)
[2023-04-14 12:20] LABS: URINE AMPHETAMINES Negative (1000ng/ml); URINE BARBITURATES Negative (200ng/ml); URINE BENZODIAZEPINES Negative (200ng/ml); URINE CANNABINOIDS (THC) Negative (50ng/ml); URINE COCAINE Negative (300ng/ml); URINE METHADONE Negative (300ng/ml); URINE OPIATES Negative (300ng/ml); URINE PHENCYCLIDINE Negative (25ng/ml)
[2023-04-14 12:29] LABS: BACTERIA 1+; MUCOUS 1+
[2023-04-14] MEDS ORDERED: LEVOFLOXACIN500 MG PO (19:04)
[2023-04-14] MEDS ORDERED: FAMOTIDINE40 MG PO (19:04)
== END 2023-04-14 19:23 | disposition home or self-care (01) ==
LOC: ED 10:37
PROVIDERS: Family Medicine
DX: N39.0 Urinary tract infection, site not specified (principal); F32.A Depression, unspecified; F41.9 Anxiety disorder, unspecified; E78.00 Pure hypercholesterolemia, unspecified; I48.91 Unspecified atrial fibrillation; G62.9 Polyneuropathy, unspecified; E03.9 Hypothyroidism, unspecified; E78.5 Hyperlipidemia, unspecified; F03.90 Unspecified dementia, unspecified severity, without behavioral disturbance, psychotic disturbance, mood disturbance, and anxiety; F17.290 Nicotine dependence, other tobacco product, uncomplicated; Z79.899 Other long term (current) drug therapy